=== PATIENT | male | born 1975 | race Caucasian/White ===

== ENCOUNTER 2022-04-25 11:01 | Emergency (ER) | payer SELFPAY ==
[2022-04-25 11:20] VITALS: BP 127/86; PULSE 82; RESP 20; TEMP 98.5; BMI 28.7
[2022-04-25] MEDS ORDERED: KETOROLAC TROMETHAMINE 30 MG/1 ML VIAL IM ONE (13:33)
[2022-04-25] MEDS ORDERED: KETOROLAC TROMETHAMINE 30 MG/1 ML VIAL ONE (13:38)
== END 2022-04-25 13:42 | disposition home or self-care (01) ==
LOC: JERFT 11:01 → EDBD 11:01 → JERFT 13:42
PROC: 3E023GC Introduction of Other Therapeutic Substance into Muscle, Percutaneous Approach (ICD-10-PCS; principal; 2022-04-25)
DX: M54.41 Lumbago with sciatica, right side (principal)
CPT/HCPCS: 99284-25